=== PATIENT | male | born 1980 | race Caucasian/White ===

== ENCOUNTER 2020-06-25 03:30 | Inpatient (IN) | payer BC, OTHER ==
[~2020-06-25] VITALS: Ht 177.8 cm; Wt 106.3 kg
[2020-06-25] MEDS ORDERED: MORPHINE SULFATE 4 MG/ML SYR/VIAL ONE ×2 (03:39→04:07)
[2020-06-25] MEDS ORDERED: ONDANSETRON HCL 4 MG/2 ML VIAL ONE (03:39)
[2020-06-25] MEDS ORDERED: MORPHINE SULFATE 4 MG/ML SYR/VIAL IV ONE (03:45)
[2020-06-25] MEDS ORDERED: HEPARIN 1,000 UNITS/ml 1ML VIAL IV ONE (03:45)
[2020-06-25 04:05] LABS: Basophils # (auto) 0.1 10 ^3/uL (0-0.2); Basophils % (auto) 0.6 % (0.0-2.0); Eosinophils # (auto) 0.1 10 ^3/uL (0-0.8); Eosinophils % (auto) 1.1 % (0.0-7.0); Hematocrit 48.3 % (41.0-53.0); Lymphocytes # (auto) 4.7 10 ^3/uL (0.4-5.4); Lymphocytes % (auto) 40.4 % (10.0-50.0); Mean Corpuscular Hemoglobin 30.2 pg (28.0-32.0); Mean Corpuscular Hgb Conc. 35.2 g/dL (32.0-36.0); Monocytes # (auto) 1.1 10 ^3/uL (0-1.3); Monocytes % (auto) 9.8 % (0.0-12.0); Neutrophils # (auto) 5.7 10 ^3/uL (1.6-8.6); Neutrophils % (auto) 48.1 % (37.0-80.0); Nucleated Red Blood Cells % 0.1 %; Platelet Count (auto) 352 10^3/uL (140-450); Red Blood Cells 5.62 10^6/uL (4.5-5.90); White Blood Cell 11.7 10^3/uL (4.4-10.8)
[2020-06-25] MEDS ORDERED: LIDOCAINE 2%HCL (LOCAL ANESTH.) INJ 20ML MDV ONE ×2 (04:07→09:42)
[2020-06-25] MEDS ORDERED: IODIXANOL 320MG/ML 100ML BTL IV ONE ×3 (04:07→09:42)
[2020-06-25] MEDS ORDERED: fentaNYL CITRATE 100 MCG/2 ML VL ONE ×3 (04:10→10:30)
[2020-06-25] MEDS ORDERED: ANGIOMAX 250 MG VIAL IV ONE ×3 (04:10→10:07)
[2020-06-25] MEDS ORDERED: MIDAZOLAM HCL 1MG/1ML-2 ML VIAL ONE ×2 (04:11→10:08)
[2020-06-25] MEDS ORDERED: SODIUM CHL 0.9% 50 ML ONE ×4 (04:11→10:08)
[2020-06-25 04:22] LABS: Albumin 3.5 g/dL (3.4-5.0); Anion Gap 11 (5-15); Blood Urea Nitrogen 14 mg/dL (7-18); Calcium 8.9 mg/dL (8.5-10.1); Carbon Dioxide 23 mmol/L (21-32); Chloride 99 mmol/L (98-107); Glucose 380 mg/dL (74-106); Magnesium 1.8 mg/dL (1.6-2.6); Potassium 3.5 mmol/L (3.5-5.1); Sodium 133 mmol/L (136-145)
[2020-06-25 04:27] LABS: Alanine Aminotransferase 143 U/L (16-61); Alkaline Phosphatase 72 U/L (45-117); Aspartate Aminotransferase 53 U/L (15-37); Bilirubin, Total 0.4 mg/dL (0.2-1.0); GFR African American 107 mL/min; GFR Non-African American 88 mL/min; Total Protein 7.5 g/dL (6.4-8.2)
[2020-06-25 04:33] LABS: INR 0.99 (0.9-1.15); Partial Thromboplastin Time 23.5 sec (23.0-31.2)
[2020-06-25] MEDS ORDERED: METOPROLOL TARTRATE 1MG/1ML-5ML VIAL IV ONE (04:40)
[2020-06-25] MEDS ORDERED: niCARdipine 25 MG/10 ML VIAL IV ONE (04:44)
[2020-06-25] MEDS ORDERED: EPTIFIBATIDE INJ (2MG/ML) 10ML VIAL IV ONE (04:47)
[2020-06-25] MEDS ORDERED: NITROGLYCERIN 5MG/ML 10ML VIAL IV ONE (04:47)
[2020-06-25] MEDS ORDERED: TICAGRELOR 90 MG TAB ONE (05:31)
[2020-06-25] MEDS ORDERED: MORPHINE SULF INJ 2 MG/ML SYRINGE 1ML IV ONE (06:00)
[2020-06-25] MEDS ORDERED: HYDROcodone-ACET 5/325MG TAB PO ONE (06:00)
[2020-06-25] MEDS ORDERED: ONDANSETRON HCL 4 MG/2 ML VIAL IV ONE (06:00)
[2020-06-25 06:59] VITALS: BP 131/92
[2020-06-25 08:00] VITALS: BP 145/96
[2020-06-25] MEDS ORDERED: HYDROcodone-ACET 5/325MG TAB PO PRN (09:15)
[2020-06-25] MEDS ORDERED: MORPHINE SULF INJ 2 MG/ML SYRINGE 1ML IV PRN ×2 (09:15→12:45)
[2020-06-25] MEDS ORDERED: ONDANSETRON HCL 4 MG/2 ML VIAL IV PRN (09:15)
[2020-06-25] MEDS ORDERED: PANTOPRAZOLE 40 MG/10 ML VIAL INJ IV ONE (10:00)
[2020-06-25] MEDS ORDERED: METOPROLOL TARTRATE 25 MG TAB PO ONE (10:00)
[2020-06-25] MEDS ORDERED: ASPirin-EC 81 mg tab PO ONE (10:00)
[2020-06-25] MEDS ORDERED: HEPARIN SODIUM (PORCINE) 5000 UNITS/ML 1ML VIAL ONE (10:07)
[2020-06-25] MEDS ORDERED: VERAPAMIL 2.5MG/ML INJ 2ML VIAL IV ONE (10:07)
[2020-06-25] MEDS ORDERED: IOHEXOL 350 MG/ML 100ML IJ ONE (10:08)
[2020-06-25] MEDS ORDERED: ASPirin 81 mg TAB PO ONE (12:45)
[2020-06-25] MEDS ORDERED: LISINOPRIL 20 MG TAB PO ONE (12:45)
[2020-06-25 12:58] LABS: Cholesterol 267 mg/dL (< 200); HDL Cholesterol 28 mg/dL (40-59); LDL Cholesterol 183 mg/dL (< 100); Triglycerides 397 mg/dL (< 150)
[2020-06-25] MEDS: TICAGRELOR 90 MG TAB PO SCH ×2 (12:59→20:59)
[2020-06-25] MEDS ORDERED: PANTOPRAZOLE 40 MG/10 ML VIAL INJ IV SCH (13:45)
[2020-06-25] MEDS ORDERED: METOPROLOL TARTRATE 25 MG TAB PO SCH (13:45)
[2020-06-25] MEDS: ALPRAZolam 0.5 MG TAB PO SCH ×2 (14:00→20:07)
[2020-06-25 16:00] VITALS: BP 142/96
[2020-06-25] MEDS: HYDROmorphone HCL 2 MG/ML VL IV PRN ×2 (16:44→20:59)
[2020-06-25] MEDS ORDERED: PANTOPRAZOLE 40 MG TAB PO ONE (17:15)
[2020-06-25] MEDS ORDERED: ATORVASTATIN 20 MG TAB PO ONE (17:30)
[2020-06-25] MEDS: SUCRALFATE 1 GM/10 ML ORAL SUSP PO SCH (20:06)
[2020-06-25] MEDS: PANTOPRAZOLE 40 MG TAB PO SCH (20:07)
[2020-06-25 22:32] VITALS: BP 114/73
[2020-06-26] MEDS: HYDROmorphone HCL 2 MG/ML VL IV PRN ×3 (05:12→20:01)
[2020-06-26 05:15] VITALS: BP 111/64
[2020-06-26] MEDS: ALPRAZolam 0.5 MG TAB PO SCH ×3 (05:45→22:56)
[2020-06-26] MEDS: SUCRALFATE 1 GM/10 ML ORAL SUSP PO SCH ×4 (05:48→22:56)
[2020-06-26 06:08] LABS: Basophils # (auto) 0 10 ^3/uL (0-0.2); Basophils % (auto) 0.2 % (0.0-2.0); Eosinophils # (auto) 0 10 ^3/uL (0-0.8); Eosinophils % (auto) 0.1 % (0.0-7.0); Hematocrit 45.1 % (41.0-53.0); Hemoglobin 15.6 g/dL (13.5-17.5); Lymphocytes # (auto) 1.4 10 ^3/uL (0.4-5.4); Lymphocytes % (auto) 10.9 % (10.0-50.0); Mean Corpuscular Hemoglobin 30.2 pg (28.0-32.0); Mean Corpuscular Hgb Conc. 34.6 g/dL (32.0-36.0); Mean Corpuscular Volume 87.5 fL (80.0-100.0); Monocytes # (auto) 1.2 10 ^3/uL (0-1.3); Neutrophils # (auto) 10.6 10 ^3/uL (1.6-8.6); Neutrophils % (auto) 79.8 % (37.0-80.0); Nucleated Red Blood Cells % 0.1 %; Platelet Count (auto) 345 10^3/uL (140-450); Red Blood Cells 5.16 10^6/uL (4.5-5.90); Red Cell Distribution Width 13.3 % (11.8-14.3); White Blood Cell 13.3 10^3/uL (4.4-10.8)
[2020-06-26 06:32] LABS: Albumin 3.2 g/dL (3.4-5.0); Potassium 3.7 mmol/L (3.5-5.1)
[2020-06-26 06:54] LABS: BUN/Creatinine Ratio 19.7; Calcium 8.5 mg/dL (8.5-10.1); Total Protein 7.4 g/dL (6.4-8.2)
[2020-06-26 08:00] VITALS: BP 90/60
[2020-06-26] MEDS: PANTOPRAZOLE 40 MG TAB PO SCH ×2 (09:38→22:56)
[2020-06-26] MEDS: TICAGRELOR 90 MG TAB PO SCH ×2 (09:38→23:07)
[2020-06-26] MEDS: ASPirin 81 mg TAB PO SCH (09:38)
[2020-06-26] MEDS ORDERED: LISINOPRIL 20 MG TAB PO SCH (10:00)
[2020-06-26] MEDS ORDERED: PANTOPRAZOLE 40 MG TAB PO SCH (10:00)
[2020-06-26] MEDS: SODIUM CHLORIDE 0.9% 1,000 ML IV SCH ×2 (11:37→17:30)
[2020-06-26 16:00] VITALS: BP 100/57
[2020-06-26 22:00] VITALS: BP 100/61
[2020-06-26] MEDS ORDERED: ATORVASTATIN 20 MG TAB PO SCH ×2 (22:00)
[2020-06-27] MEDS: HYDROmorphone HCL 2 MG/ML VL IV PRN ×3 (00:57→07:21)
[2020-06-27] MEDS: SODIUM CHLORIDE 0.9% 1,000 ML IV SCH ×2 (01:30→09:57)
[2020-06-27 05:00] VITALS: BP 101/63
[2020-06-27] MEDS: ALPRAZolam 0.5 MG TAB PO SCH (06:11)
[2020-06-27] MEDS: SUCRALFATE 1 GM/10 ML ORAL SUSP PO SCH ×2 (06:17→11:30)
[2020-06-27 06:26] LABS: Basophils # (auto) 0 10 ^3/uL (0-0.2); Basophils % (auto) 0.4 % (0.0-2.0); Eosinophils # (auto) 0 10 ^3/uL (0-0.8); Eosinophils % (auto) 0.3 % (0.0-7.0); Hematocrit 42.9 % (41.0-53.0); Hemoglobin 14.8 g/dL (13.5-17.5); Lymphocytes # (auto) 1.9 10 ^3/uL (0.4-5.4); Mean Corpuscular Hemoglobin 30.4 pg (28.0-32.0); Mean Corpuscular Hgb Conc. 34.5 g/dL (32.0-36.0); Mean Corpuscular Volume 88.3 fL (80.0-100.0); Monocytes % (auto) 11.1 % (0.0-12.0); Neutrophils # (auto) 5.9 10 ^3/uL (1.6-8.6); Neutrophils % (auto) 67.2 % (37.0-80.0); Platelet Count (auto) 269 10^3/uL (140-450); Red Blood Cells 4.87 10^6/uL (4.5-5.90); Red Cell Distribution Width 13.1 % (11.8-14.3); White Blood Cell 8.8 10^3/uL (4.4-10.8)
[2020-06-27 07:00] LABS: BUN/Creatinine Ratio 19.7; Calcium 8.4 mg/dL (8.5-10.1)
[2020-06-27 08:00] VITALS: BP 102/61
[2020-06-27] MEDS: PANTOPRAZOLE 40 MG TAB PO SCH (09:58)
[2020-06-27] MEDS: TICAGRELOR 90 MG TAB PO SCH (09:58)
[2020-06-27] MEDS: ASPirin 81 mg TAB PO SCH (09:58)
[2020-06-27 11:02] VITALS: BP 106/61
== END 2020-06-27 12:50 | disposition home or self-care (01) | DRG 229 ==
LOC: ER 03:30 → EDBD 03:30 → TELE-CENTR 03:31 → ER 04:24
PROVIDERS: ADMIT Specialist; ATTEND Family Medicine
PROC: 4A023N7 Measurement of Cardiac Sampling and Pressure, Left Heart, Percutaneous Approach (ICD-10-PCS; principal; 2020-06-25)
PROC: 02C00ZZ Extirpation of Matter from Coronary Artery, One Artery, Open Approach (ICD-10-PCS; 2020-06-25)
PROC: 02C03ZZ Extirpation of Matter from Coronary Artery, One Artery, Percutaneous Approach (ICD-10-PCS; 2020-06-25)
PROC: 027035Z Dilation of Coronary Artery, One Artery with Two Drug-eluting Intraluminal Devices, Percutaneous Approach (ICD-10-PCS; 2020-06-25)
PROC: 02713EZ Dilation of Coronary Artery, Two Arteries with Two Intraluminal Devices, Percutaneous Approach (ICD-10-PCS; 2020-06-25)
PROC: B2111ZZ Fluoroscopy of Multiple Coronary Arteries using Low Osmolar Contrast (ICD-10-PCS; 2020-06-25)
PROC: B2161ZZ Fluoroscopy of Right and Left Heart using Low Osmolar Contrast (ICD-10-PCS; 2020-06-25)
PROC: 4A023N7 Measurement of Cardiac Sampling and Pressure, Left Heart, Percutaneous Approach (ICD-10-PCS; 2020-06-25)
PROC: B2151ZZ Fluoroscopy of Left Heart using Low Osmolar Contrast (ICD-10-PCS; 2020-06-25)
PROC: B2101ZZ Fluoroscopy of Single Coronary Artery using Low Osmolar Contrast (ICD-10-PCS; 2020-06-25)
DX: I21.09 ST elevation (STEMI) myocardial infarction involving other coronary artery of anterior wall (principal); I25.10 Atherosclerotic heart disease of native coronary artery without angina pectoris; Z20.822 Contact with and (suspected) exposure to COVID-19; I95.9 Hypotension, unspecified; Z79.82 Long term (current) use of aspirin; Z79.899 Other long term (current) drug therapy; Z82.49 Family history of ischemic heart disease and other diseases of the circulatory system; Z83.3 Family history of diabetes mellitus; Z95.5 Presence of coronary angioplasty implant and graft; Z95.818 Presence of other cardiac implants and grafts
CPT/HCPCS: 36415; 71045; 80048; 80053; 80061; 83735; 84484; 85025; 85610; 85730; 87426; 93306; 99152; 99153; 99291; C1874; G0378; J2250; J2405; J3490; Q9967

== ENCOUNTER 2024-05-20 08:10 | Emergency (ER) | payer OTHER ==
[~2024-05-20] VITALS: Ht 175.3 cm; Wt 109.7 kg
--- NOTE | 2024-05-20 08:53 | ED.PDOC ---
SOB-HPI HPI Comments 43 Y M with PMHX of DM, CA, and CVA presents to the ED with CC of SOB. Patient states that he has been experiencing intermittent shortness of breath with associated symptoms of cough for 2 weeks, and due to his PMHX he decided to come to the ED. Patient states that at home his O2 stat was 89% however, in triage his O2 stat read at 98%. Patient relays that he takes eliquis at home and has stopped taking his diabetic medication as he has been able control his blood sugar levels. Normally symptoms due improve during the middle of the day. Patient denies any fever, chills, or N/V/D. Chief Complaint: Shortness of Breath Time Seen by MD: 08:20 Primary Care Provider: none Reviewed notes: Nurses Notes, Medications, Allergies Mode of Arrival: Ambulatory Severity: Moderate Timing: Hours Duration: Since onset Context: Spontaneous Onset History of: None Prehospital treatment: None Modifying Factors: Nothing Associated Signs and Symptoms: Cough, Chest Pain Quality: Tightness Radiation: No Radiation Location: Substernal If cough with SOB: Non-Productive Past Medical History PAST MEDICAL HISTORY: CA Surgical History: PTCA, Tonsillectomy Family History Family History: Family hx of DM, Family hx of heart mono Social History Smoker: Non-Smoker Alcohol: Occasionally Drugs: Denies Drug Use Lives In: Home Constitutional: denies: chills, diaphoresis, fatigue, fever, malaise, sweats, weakness, others EENTM: denies: blurred vision, double vision, ear bleeding, ear discharge, ear drainage, ear pain, ear ringing, eye pain, eye redness, hearing loss, mouth pain, mouth swelling, nasal discharge, nose bleeding, nose congestion, nose pain, photophobia, tearing, throat pain, throat swelling, voice changes, others Respiratory: reports: cough, shortness of breath; denies: hemoptysis, orthopnea, SOB at rest, SOB with excertion, stridor, wheezing, others Cardiovascular: reports: others (Chest tightness); denies: chest pain, dizzy spells, diaphoresis, Dyspnea on exertion, edema, irregular heart beat, left arm pain, lightheadedness, palpitations, PND, syncope Gastrointestinal: denies: abdomen distended, abdominal pain, blood streaked bowels, constipated, diarrhea, dysphagia, difficulty swallowing, hematemesis, melena, nausea, poor appetite, poor fluid intake, rectal bleeding, rectal pain, vomiting, others Genitourinary: denies: burning, dysuria, flank pain, frequency, hematuria, incontinence, penile discharge, penile sore, pain, testicle pain, testicle swelling, urgency, others Neurological: denies: dizziness, fainting, headache, left sided numbness, left sided weakness, numbness, paresthesia, pre-existing deficit, right sided nu mbness, right sided weakness, seizure, speech problems, tingling, tremors, weakness, others Musculoskeletal: denies: back pain, gout, joint pain, joint swelling, muscle pain, muscle stiffness, neck pain, others Integumetry: denies: bruises, change in color, change in hair/nails, dryness, laceration, lesions, lumps, rash, wounds, others Allergic/Immunocompromised: denies: Difficulty Healing, Frequent Infections, Hives, Itching, others Hematologic/Lymphatic: denies: anemia, blood clots, easy bleeding, easy bruising, swollen glands, others Endocrine: denies: excessive hunger, excessive sweating, excessive thirst, excessive urination, flushing, intolerance to cold, intolerance to heat, unexplained weight gain, unexplained weight loss, others Psychiatric: denies: anxiety, bipolar disorder, depression, hopeless, panic disorder, schizophrenia, sleepless, suicidal, others All Other Systems: Reviewed and Negative Physical Exam General Appearance: No Apparent Distress, Normal HEENT: Normal ENT Inspection, Pharynx Normal, TMs Normal Neck: Full Range of Motion, Non-Tender, Normal, Normal Inspection Respiratory: Chest Non-Tender, Lungs Clear, No Accessory Muscle Use, No Respiratory Distress, Normal Breath Sounds Cardiovascular: No Edema, No JVD, No Murmur, No Gallop, Normal Peripheral Pulses, Regular Rate/Rhythm Breast Exam: Deferred Gastrointestinal: No Organomegaly, Non Tender, No Pulsatile Mass, Normal Bowel Sounds, Soft Genitalia: Deferred Pelvic: Deferred Rectal: Deferred Extremities: No calf tenderness, Normal capillary refill, Normal inspection, Normal range of motion, Non-tender, No pedal edema Musculoskeletal : Apperance: Normal Neurologic: Alert, 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 Was a procedure done?: No Differential Dx Differential Diagnosis: COPD, Hyperventilation, Respiratory Distress Comments ACS, CHF, PTx, X-Ray, Labs, Meds, VS Vital Signs Date Time Temp Pulse Resp B/P (MAP) Pulse Ox O2 Delivery O2 Flow Rate FiO2 05/20/24 09:55 98.5 95 18 143/90 (107) 95 98.5 05/20/24 08:53 100 05/20/24 08:26 19 95 Room Air* 0 21 05/20/24 08:21 99.2 104 19 160/88 (112) 95 05/20/24 08:17 100 Lab Test 05/20/24 09:40 05/20/24 08:49 Range/Units Troponin I High Sensitivity 11 13 </=54 ng/L White Blood Count 11.2 H 4.4-10.8 10^3/uL Red Blood Count 6.00 H 4.5-5.90 10^6/uL Hemoglobin 17.2 13.5-17.5 g/dL Hematocrit 51.0 41.0-53.0 % Mean Corpuscular Volume 84.9 80.0-100.0 fL Mean Corpuscular Hemoglobin 28.7 28.0-32.0 pg Mean Corpuscular Hemoglobin Concent 33.8 32.0-36.0 g/dL Red Cell Distribution Width 14.8 H 11.8-14.3 % Platelet Count 275 140-450 10^3/uL Mean Platelet Volume 7.1 6.9-10.8 fL Neutrophils (%) (Auto) 76.2 37.0-80.0 % Lymphocytes (%) (Auto) 14.9 10.0-50.0 % Monocytes (%) (Auto) 6.8 0.0-12.0 % Eosinophils (%) (Auto) 1.7 0.0-7.0 % Basophils (%) (Auto) 0.4 0.0-2.0 % Neutrophils # (Auto) 8.5 1.6-8.6 10 ^3/uL Lymphocytes # (Auto) 1.7 0.4-5.4 10 ^3/uL Monocytes # (Auto) 0.8 0-1.3 10 ^3/uL Eosinophils # (Auto) 0.2 0-0.8 10 ^3/uL Basophils # (Auto) 0 0-0.2 10 ^3/uL Nucleated Red Blood Cells 0.1 % D-Dimer, Quantitative < 0.19 0.0-0.49 mg/L FEU Sodium Level 138 136-145 mmol/L Potassium Level 4.7 3.5-5.1 mmol/L Chloride Level 102 98-107 mmol/L Carbon Dioxide Level 31 20-31 mmol/L Anion Gap 5 5-15 Blood Urea Nitrogen 11 9-23 mg/dL Creatinine 1.05 0.700-1.30 mg/dL Glomerular Filtration Rate Calc 90 >90 mL/min BUN/Creatinine Ratio 10.5 10.0-20.0 Serum Glucose 132 H 74-106 mg/dL Calcium Level 10.1 8.7-10.4 mg/dL Total Bilirubin 0.8 0.2-1.0 mg/dL Aspartate Amino Transferase (AST) 21 13-40 U/L Alanine Aminotransferase (ALT) 25 7-40 U/L Alkaline Phosphatase 66 46-116 U/L B-Type Natriuretic Peptide 54.81 0-100 pg/mL Total Protein 6.8 5.7-8.2 g/dL Albumin 4.4 3.2-4.8 g/dL Chest XR: FINDINGS: Lines and Tubes: None Lungs: Clear Pleura: No effusion. No pneumothorax. Cardiomediastinal contours: Unremarkable Bones: Unremarkable IMPRESSION: No acute disease. Images Reviewed?: Images reviewed and evaluated by me Time of 1ST Reevaluation: 09:20 Reevaluation 1ST: Unchanged Time of 2ND Reevaluation: 10:33 Reevaluation 2ND: Improved Patient Education/Counseling: Diagnosis, Treatment Family Education/Counseling: No Family Present Departure 1 Departure Time of Disposition: 10:36 Impression: Primary Impression: Viral URI with cough Disposition: 01 HOME / SELF CARE / HOMELESS Condition: Stable e-Prescriptions No Active Prescriptions or Reported Meds Critical Care Note Critical Care Time?: No Stability Stability form required: No Heart Score Heart Score: Heart Score Response (Comments) Value History N/A 0 EKG N/A 0 Age N/A 0 Risk Factors N/A 0 Troponin N/A 0 Total 0 I personally scribed for LEEANN DOWELL MD ([email or web address]) on 05/20/24 at 08:53. Electronically submitted by Brittani Bustillos ([email or web address]). I personally scribed for LEEANN DOWELL MD ([email or web address]) on 05/20/24 at 09:08. Electronically submitted by Kyler Oconnor ([email or web address]). LEEANN DOWELL MD May 20, 2024 08:53
--- NOTE | 2024-05-20 09:01 | DVH ---
CHEST RADIOGRAPH Indication: sob Technique: Single frontal view of the chest was obtained COMPARISON: CHEST PORTABLE on DOS: 06/26/20, CHEST PORTABLE on DOS: 06/25/20 FINDINGS: Lines and Tubes: None Lungs: Clear Pleura: No effusion. No pneumothorax. Cardiomediastinal contours: Unremarkable Bones: Unremarkable IMPRESSION: No acute disease.
--- NOTE | 2024-05-20 09:11 | ECG ---
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
[2024-05-20 09:25] LABS: Basophils # (auto) 0 10 ^3/uL (0-0.2); Basophils % (auto) 0.4 % (0.0-2.0); Eosinophils # (auto) 0.2 10 ^3/uL (0-0.8); Eosinophils % (auto) 1.7 % (0.0-7.0); Hemoglobin 17.2 g/dL (13.5-17.5); Lymphocytes # (auto) 1.7 10 ^3/uL (0.4-5.4); Lymphocytes % (auto) 14.9 % (10.0-50.0); Mean Corpuscular Hemoglobin 28.7 pg (28.0-32.0); Mean Corpuscular Hgb Conc. 33.8 g/dL (32.0-36.0); Mean Corpuscular Volume 84.9 fL (80.0-100.0); Monocytes # (auto) 0.8 10 ^3/uL (0-1.3); Monocytes % (auto) 6.8 % (0.0-12.0); Neutrophils # (auto) 8.5 10 ^3/uL (1.6-8.6); Neutrophils % (auto) 76.2 % (37.0-80.0); Nucleated Red Blood Cells % 0.1 %; Platelet Count (auto) 275 10^3/uL (140-450); Red Cell Distribution Width 14.8 % (11.8-14.3); White Blood Cell 11.2 10^3/uL (4.4-10.8)
[2024-05-20 09:37] LABS: Alanine Aminotransferase 25 U/L (7-40); Albumin 4.4 g/dL (3.2-4.8); Alkaline Phosphatase 66 U/L (46-116); Anion Gap 5 (5-15); Aspartate Aminotransferase 21 U/L (13-40); BUN/Creatinine Ratio 10.5 (10.0-20.0); Bilirubin, Total 0.8 mg/dL (0.2-1.0); Blood Urea Nitrogen 11 mg/dL (9-23); Calcium 10.1 mg/dL (8.7-10.4); Carbon Dioxide 31 mmol/L (20-31); Chloride 102 mmol/L (98-107); Glucose 132 mg/dL (74-106); Potassium 4.7 mmol/L (3.5-5.1); Sodium 138 mmol/L (136-145)
[2024-05-20 09:38] LABS: Total Protein 6.8 g/dL (5.7-8.2)
[2024-05-20 10:53] VITALS: BP 124/85; PULSE 95; RESP 16; TEMP 98.8; O2SAT 97
== END 2024-05-20 11:01 | disposition home or self-care (01) ==
LOC: ER 08:10
DX: J06.9 Acute upper respiratory infection, unspecified (principal); E11.9 Type 2 diabetes mellitus without complications; Z90.89 Acquired absence of other organs; Z98.890 Other specified postprocedural states
CPT/HCPCS: 36415; 71045; 80053; 83880; 84484; 85025; 85379; 93005

== ENCOUNTER 2024-10-05 18:44 | Inpatient (IN) | payer OTHER ==
[~2024-10-05] VITALS: Ht 177.8 cm; Wt 91.0 kg
--- NOTE | 2024-10-05 18:54 | ED.PDOC ---
HPI Comments 44-year-old male with PMHx NH, CAD brought in by EMS presents with a chief complaint of chest pain x onset last night but worsening today. Patient states that his pain is localized "across my chest", radiating into his left arm, and rates his pain differently compared to his previous NH's. Patient mentions that he worked out with his and that may have exacerbated the chest pain. Patient also mentions that he took a NTG at home. Patients BP at home read 153/101 according to patient prior to the NTG. 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 Location: Chest (L) Radiation: Arm (L) Quality: Sharp Onset: With Light Exertion History of: NH, Angioplasty, Other (Eliquis ) Past Medical History PAST MEDICAL HISTORY: NH Surgical History: PTCA, Tonsillectomy Family History Family History: Family hx of DM, Family hx of heart mono Social History Smoker: Non-Smoker Alcohol: Occasionally Drugs: Denies Drug Use Lives In: Home Constitutional: denies: chills, diaphoresis, fatigue, fever, malaise, sweats, weakness, others EENTM: denies: blurred vision, double vision, ear bleeding, ear discharge, ear drainage, ear pain, ear ringing, eye pain, eye redness, hearing loss, mouth pain, mouth swelling, nasal discharge, nose bleeding, nose congestion, nose pain, photophobia, tearing, throat pain, throat swelling, voice changes, others Respiratory: denies: cough, hemoptysis, orthopnea, SOB at rest, shortness of breath, SOB with excertion, stridor, wheezing, others Cardiovascular: reports: chest pain; denies: dizzy spells, diaphoresis, Dyspnea on exertion, edema, irregular heart beat, left arm pain, lightheadedness, palpitations, PND, syncope, others Gastrointestinal: denies: abdomen distended, abdominal pain, blood streaked bowels, constipated, diarrhea, dysphagia, difficulty swallowing, hematemesis, melena, nausea, poor appetite, poor fluid intake, rectal bleeding, rectal pain, vomiting, others Genitourinary: denies: burning, dysuria, flank pain, frequency, hematuria, incontinence, penile discharge, penile sore, pain, testicle pain, testicle swelling, urgency, others Neurological: denies: dizziness, fainting, headache, left sided numbness, left sided weakness, numbness, paresthesia, pre-existing deficit, right sided numbness, right sided weakness, seizure, speech problems, tingling, tremors, weakness, others Musculoskeletal: denies: back pain, gout, joint pain, joint swelling, muscle pain, muscle stiffness, neck pain, others Integumetry: denies: bruises, change in color, change in hair/nails, dryness, laceration, lesions, lumps, rash, wounds, others Allergic/Immunocompromised: denies: Difficulty Healing, Frequent Infections, Hives, Itching, others Hematologic/Lymphatic: denies: anemia, blood clots, easy bleeding, easy bruising, swollen glands, others Endocrine: denies: excessive hunger, excessive sweating, excessive thirst, excessive urination, flushing, intolerance to cold, intolerance to heat, unexplained weight gain, unexplained weight loss, others Psychiatric: denies: anxiety, bipolar disorder, depression, hopeless, panic disorder, schizophrenia, sleepless, suicidal, others All Other Systems: Reviewed and Negative Physical Exam General Appearance: Mild Distress, Normal HEENT: Normal ENT Inspection, Pharynx Normal, TMs Normal Neck: Full Range of Motion, Non-Tender, Normal, Normal Inspection Respiratory: Chest Non-Tender, Lungs Clear, No Accessory Muscle Use, No Respiratory Distress, Normal Breath Sounds Cardiovascular: No Edema, No JVD, No Murmur, No Gallop, Normal Peripheral Pulses, Regular Rate/Rhythm Breast Exam: Deferred Gastrointestinal: No Organomegaly, Non Tender, No Pulsatile Mass, Normal Bowel Sounds, Soft Genitalia: Deferred Pelvic: Deferred Rectal: Deferred Extremities: No calf tenderness, Normal capillary refill, Normal inspection, Normal range of motion, Non-tender, No pedal edema Musculoskeletal : Apperance: Normal Neurologic: Alert, bell spinner II-XII nml as Tested, No Motor Deficits, Normal Affect, Normal Mood, No Sensory Deficits Cerebellar Function: Normal Reflexes: Normal Skin: Dry, Normal Color, Warm Lymphatic: No Adenopathy Was a procedure done? Was a procedure done?: No CP Differential Dx Differential Diagnosis: MAT, NH, PAC's Differential Diagnosis: HTN Essential, HTN Accelerated, HTN Encephalopathy Differential Diagnosis: Gastritis, Myocardial Infarction X-Ray, Labs, Meds, VS Vital Signs Date Time Temp Pulse Resp B/P (MAP) Pulse Ox O2 Delivery O2 Flow Rate FiO2 10/05/24 20:59 118/79 10/05/24 20:11 88 18 127/77 10/05/24 19:43 135/74 10/05/24 19:42 115 19 135/74 10/05/24 18:58 98.4 113 18 125/62 (83) 98 98.4 10/05/24 18:57 117 18 93 Room Air 10/05/24 18:57 119 18 136/75 (95) 93 10/05/24 18:44 117 Lab Test 10/05/24 19:50 10/05/24 18:50 Range/Units Troponin I High Sensitivity 23 22 </=54 ng/L White Blood Count 13.8 H 4.4-10.8 10^3/uL Red Blood Count 6.00 H 4.5-5.90 10^6/uL Hemoglobin 17.4 13.5-17.5 g/dL Hematocrit 52.0 41.0-53.0 % Mean Corpuscular Volume 86.7 80.0-100.0 fL Mean Corpuscular Hemoglobin 29.0 28.0-32.0 pg Mean Corpuscular Hemoglobin Concent 33.4 32.0-36.0 g/dL Red Cell Distribution Width 15.6 H 11.8-14.3 % Platelet Count 325 140-450 10^3/uL Mean Platelet Volume 6.1 L 6.9-10.8 fL Neutrophils (%) (Auto) 79.2 37.0-80.0 % Lymphocytes (%) (Auto) 10.4 10.0-50.0 % Monocytes (%) (Auto) 9.7 0.0-12.0 % Eosinophils (%) (Auto) 0.1 0.0-7.0 % Basophils (%) (Auto) 0.6 0.0-2.0 % Neutrophils # (Auto) 11.0 H 1.6-8.6 10 ^3/uL Lymphocytes # (Auto) 1.4 0.4-5.4 10 ^3/uL Monocytes # (Auto) 1.3 0-1.3 10 ^3/uL Eosinophils # (Auto) 0 0-0.8 10 ^3/uL Basophils # (Auto) 0.1 0-0.2 10 ^3/uL Nucleated Red Blood Cells 0.0 % Prothrombin Time 12.0 H 9.3-11.8 sec Prothrombin Time INR 1.15 0.9-1.15 Activated Partial Thromboplast Time 32.4 24.5-34.5 SEC Sodium Level 133 L 136-145 mmol/L Potassium Level 4.0 3.5-5.1 mmol/L Chloride Level 98 98-107 mmol/L Carbon Dioxide Level 28 20-31 mmol/L Anion Gap 7 5-15 Blood Urea Nitrogen 11 9-23 mg/dL Creatinine 0.99 0.700-1.30 mg/dL Glomerular Filtration Rate Calc 96 >90 mL/min BUN/Creatinine Ratio 11.1 10.0-20.0 Serum Glucose 175 H 74-106 mg/dL Calcium Level 9.2 8.7-10.4 mg/dL B-Type Natriuretic Peptide 29.32 0-100 pg/mL Current Medications Medications (Trade) Dose Ordered Sig/Porter Route Start Time Stop Time Status Last Admin Morphine Sulfate 4 mg ONCE ONCE IV 10/05/24 19:30 10/05/24 19:31 DC 10/05/24 19:42 Ondansetron HCl (Zofran) 4 mg ONCE ONCE IV 10/05/24 19:30 10/05/24 19:31 DC 10/05/24 19:42 Nitroglycerin (Ntrostat Sublingual) 0.4 mg ONCE ONCE SL 10/05/24 19:30 10/05/24 19:31 DC 10/05/24 19:43 Time of 1ST Reevaluation: 19:16 Reevaluation 1ST: Unchanged Patient Education/Counseling: Diagnosis, Treatment Family Education/Counseling: No Family Present Departure 1 Departure Time of Disposition: 21:07 ([place] . Authorized to admit here.Patient presented with chest pain that was concerning for possible STEMI, ACS, PE, Pneumonia, Muscle Strain, COPD, Dissection. Data: 1. I ordered and reviewed the result of at least 3 labs including a CBC, BMP, and Troponin. 2. I independently interpreted the following tests: EKG which shows sinus arrhythmia and Chest X-ray which shows benign chest.Risk:This patient has a high risk of morbidity due to further diagnostic testing or treatment and may suffer from an acute cardiac or respiratory disorder. Workup reveals concern for ACS and patient should be admitted for further workup and possible expert consultation. ) Impression: Primary Impression: Acute chest pain Additional Impression: Shortness of breath Disposition: ADMITTED INPATIENT Admit to: Tele Condition: Guarded e-Prescriptions No Active Prescriptions or Reported Meds Critical Care Note Critical Care Time?: Yes Critical care comment: Acute chest pain Authorized and Performed by: Solis Gamez MD Total critical care time: Approximately 39 minutes Due to a high probability of clinically significant, life threatening deterioration, the patient required my highest level of preparedness to intervene emergently and I personally spent this critical care time directly and personally managing the patient. This critical care time included obtaining a h istory; examining the patient; pulse oximetry; ordering and review of studies; arranging urgent treatment with development of a management plan; evaluation of patient's response to treatment; frequent reassessment; and, discussions with other providers. This critical care time was performed to assess and manage the high probability of imminent, life-threatening deterioration that could result in multi-organ failure. It was exclusive of separately billable procedures and treating other patients and teaching time. Please see my other sections and the rest of the note for further information on patient assessment and treatment. Stability Stability form required: No Heart Score Heart Score: Heart Score Response (Comments) Value History Moderate Suspicious 1 EKG Repolarization Disturb 1 Age <45 0 Risk Factors >3 or Hx ASHD 2 Troponin 1-2 x's Normal limit 1 Total 5 I personally scribed for SOLIS GAMEZ MD ([email or web address]) on 10/05/24 at 18:54. Electronically submitted by Juan Schaefer ([email or web address]). SOLIS GAMEZ MD Oct 05, 2024 18:54
[2024-10-05 18:58] VITALS: TEMP 98.4; O2SAT 98
--- NOTE | 2024-10-05 19:00 | ECG ---
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
[2024-10-05 19:02] LABS: Basophils # (auto) 0.1 10 ^3/uL (0-0.2); Basophils % (auto) 0.6 % (0.0-2.0); Eosinophils # (auto) 0 10 ^3/uL (0-0.8); Eosinophils % (auto) 0.1 % (0.0-7.0); Hemoglobin 17.4 g/dL (13.5-17.5); Lymphocytes # (auto) 1.4 10 ^3/uL (0.4-5.4); Lymphocytes % (auto) 10.4 % (10.0-50.0); Mean Corpuscular Hgb Conc. 33.4 g/dL (32.0-36.0); Mean Corpuscular Volume 86.7 fL (80.0-100.0); Monocytes # (auto) 1.3 10 ^3/uL (0-1.3); Monocytes % (auto) 9.7 % (0.0-12.0); Neutrophils % (auto) 79.2 % (37.0-80.0); Platelet Count (auto) 325 10^3/uL (140-450); Red Cell Distribution Width 15.6 % (11.8-14.3); White Blood Cell 13.8 10^3/uL (4.4-10.8)
[2024-10-05 19:15] LABS: Anion Gap 7 (5-15); Calcium 9.2 mg/dL (8.7-10.4); Carbon Dioxide 28 mmol/L (20-31)
[2024-10-05 19:17] LABS: Chloride 98 mmol/L (98-107); Sodium 133 mmol/L (136-145)
[2024-10-05 19:18] LABS: INR 1.15 (0.9-1.15); Partial Thromboplastin Time 32.4 SEC (24.5-34.5)
[2024-10-05 19:20] LABS: BUN/Creatinine Ratio 11.1 (10.0-20.0); Blood Urea Nitrogen 11 mg/dL (9-23)
[2024-10-05 19:21] LABS: Glucose 175 mg/dL (74-106)
[2024-10-05] MEDS: ONDANSETRON HCL 4 MG/2 ML VIAL IV ONE (19:42)
[2024-10-05] MEDS: MORPHINE SULFATE 4 MG/ML SYR/VIAL IV ONE (19:42)
[2024-10-05] MEDS: NITROGLYCERIN 0.4 MG SL TAB SL ONE (19:43)
--- NOTE | 2024-10-05 19:53 | DVH ---
CHEST RADIOGRAPH Indication: chest pain Technique: Single frontal view of the chest was obtained Comparison: XY CHEST PORTABLE on DOS: 05/20/24, CHEST PORTABLE on DOS: 06/26/20, CHEST PORTABLE on DOS: 06/25/20 FINDINGS: Lines and Tubes: None Lungs: No focal consolidation. Pleura: No effusion. No pneumothorax. Cardiomediastinal contours: Unremarkable Bones: No acute osseous abnormality. IMPRESSION: 1. No acute cardiopulmonary disease.
[2024-10-05 20:11] VITALS: BP 127/77; PULSE 88; RESP 18
[2024-10-05] MEDS ORDERED: NITROGLYCERIN 0.4 MG SL TAB SL PRN (21:30)
[2024-10-05] MEDS ORDERED: ACETAMINOPHEN 325 MG TAB PO PRN (21:30)
[2024-10-05] MEDS ORDERED: ONDANSETRON HCL 4 MG/2 ML VIAL IV PRN (21:30)
[2024-10-05] MEDS ORDERED: LORazepam 0.5 MG TAB PO PRN (21:30)
[2024-10-05] MEDS ORDERED: MORPHINE SULFATE INJ 2 MG/ml SYRG IV PRN (21:30)
[2024-10-06] MEDS ORDERED: ENOXAPARIN SOD 40 MG/0.4 ML SYRINGE SC SCH (10:00)
== END 2024-10-05 21:34 | disposition left against medical advice (07) | DRG 313 ==
LOC: EDBD 18:44 → ER 18:47 → OVERFLOW 21:24 → ER 21:24 → OVERFLOW 21:27
PROVIDERS: ADMIT Internal Medicine; ATTEND Internal Medicine
DX: R07.89 Other chest pain (principal); I25.10 Atherosclerotic heart disease of native coronary artery without angina pectoris; Z53.29 Procedure and treatment not carried out because of patient's decision for other reasons; Z83.3 Family history of diabetes mellitus; Z79.899 Other long term (current) drug therapy
CPT/HCPCS: 36415; 71045; 80048; 83880; 84484; 85025; 85610; 85730; 93005; 96374; 96375; 99291; G0378; J2405